=== PATIENT | female | born 1970 | race Asian ===

== ENCOUNTER 2018-07-23 14:30 | Outpatient (CLI) | payer BC | END 2018-07-23 15:30 | disposition home or self-care (01) | LOC: RAD 14:30 | DX: M54.16 Radiculopathy, lumbar region (principal); R60.0 Localized edema ==

== ENCOUNTER 2018-08-12 09:59 | Outpatient (CLI) | payer BC | END 2018-08-12 22:23 | disposition home or self-care (01) | LOC: MRI 09:59 | DX: R60.0 Localized edema (principal); M54.16 Radiculopathy, lumbar region ==

== ENCOUNTER 2019-09-23 13:02 | Outpatient (CLI) | payer BC ==
[~2019-09-23] VITALS: Ht 165.1 cm; Wt 94.4 kg
== END 2019-09-23 14:40 | disposition home or self-care (01) ==
LOC: INF 13:02
DX: M86.9 Osteomyelitis, unspecified (principal)
CPT/HCPCS: 36591; 82550; 96365; 96375; J0878

== ENCOUNTER 2020-06-05 13:03 | Outpatient (CLI) | payer BC | END 2020-06-05 22:31 | disposition home or self-care (01) | LOC: RAD 13:03 | PROVIDERS: ATTEND Nurse Practitioner Family | DX: R05 Cough (principal) ==

== ENCOUNTER 2020-09-10 10:09 | Outpatient (CLI) | payer BC, OTHER | END 2020-09-10 19:00 | disposition home or self-care (01) | LOC: INF 10:09 | PROVIDERS: ATTEND Internal Medicine | DX: Z23 Encounter for immunization (principal) | CPT/HCPCS: 96372 ==

== ENCOUNTER 2020-10-04 10:00 | Outpatient (CLI) | payer BC, OTHER | END 2020-10-04 23:59 | disposition home or self-care (01) | LOC: INF 10:00 | PROVIDERS: ATTEND Internal Medicine | DX: Z23 Encounter for immunization (principal) | CPT/HCPCS: 96372 ==

== ENCOUNTER 2021-08-21 16:47 | Outpatient (CLI) | payer BC | END 2021-08-21 19:52 | disposition home or self-care (01) | LOC: RAD 16:47 | PROVIDERS: ATTEND Nurse Practitioner Family | DX: R05.3 Chronic cough (principal) ==

== ENCOUNTER 2021-10-25 15:39 | Outpatient (CLI) | payer BC | END 2021-10-25 21:02 | disposition home or self-care (01) | LOC: RAD 15:39 | PROVIDERS: ATTEND Internal Medicine Sleep Medicine | DX: R05.3 Chronic cough (principal) ==

== ENCOUNTER 2021-11-06 08:41 | Outpatient (CLI) | payer BC | END 2021-11-06 19:01 | disposition home or self-care (01) | LOC: RAD 08:41 | PROVIDERS: ATTEND Internal Medicine Sleep Medicine | DX: R05.3 Chronic cough (principal) ==